=== PATIENT | female | born 1980 | race African-American/Black ===

== ENCOUNTER → 2016-07-20 | Outpatient (CLI) | payer BC ==
[~2016-07-20] MED LIST: ACET-1651 PO; BENZ100C97 PO; CODE118S2 PO; IBUP200C62 PO
--- NOTE | 2016-07-22 17:23 | DI ---
Indication: ITS.REASON: [id number] INJURY PROCEDURE: MRI KNEE RIGHT W/O CONTRAST: Encounter: Initial Comparison: Right knee MRI dated June 16, 2015 Technique: Multiplanar multisequence MR imaging of the right knee was performed without contrast. Findings: The lateral meniscus is normal. The medial meniscus is normal. The ACL and PCL are normal. The MCL and lateral collateral ligament complex are normal. The extensor mechanism is normal. Bone marrow signal intensity is normal. No acute fracture. Medial compartment cartilage is maintained. Lateral compartment cartilage is normal. Patellofemoral compartment cartilage shows some edema in the median ridge and both facets with a small area of cartilage fissuring at the medial aspect of the lateral facet and an additional small area of fissuring within the medial facet. These are best seen on axial image #17. No joint effusion or Whitmore's cyst. Muscular signal intensity is normal. Impression: 1. No meniscal or ligamentous injury. 2. 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 .
== END ==
LOC: IMA 16:24
PROVIDERS: ATTEND Orthopaedic Surgery
DX: M22.41 Chondromalacia patellae, right knee (principal)